=== PATIENT | male | born 1970 | race Caucasian/White ===

== ENCOUNTER 2017-09-13 14:56 | Emergency (ER) | payer BC, OTHER ==
[2017-09-13] MEDS ORDERED: LISINOPRIL 10 MG TABLET PO ONE (15:39)
--- NOTE | 2017-09-13 15:48 | ER Document Report ---
HPI - HPI Patient complains to provider of: Right knee pain Onset: Last week Onset/Duration: Persistent Quality of pain: Achy Pain Level: 3 Context: Patient states that he woke up 1 week ago with right knee pain. Patient states pain is persisted and is affecting his ability to go up and down his staircase at home. Patient denies any fever. Patient states that he does do a lot of driving and that this aggravates his knee discomfort. Patient additionally reports that he had a change of insurance and that his primary doctor left the area and so he has not been on his blood pressure medication due to this. Patient states that he typically takes lisinopril 20, atorvastatin 40 and daily aspirin. Patient denies any history of any renal function abnormalities. Associated Symptoms: Other - Right knee pain. denies: Chest pain, Productive cough, Fever, Headache Exacerbated by: Movement, Walking Relieved by: Denies Similar symptoms previously: No Recently seen / treated by doctor: No - ROS ROS below otherwise negative: Yes Systems Reviewed and Negative: Yes All other systems reviewed and negative - CONSTITUTIONAL Constitutional: DENIES: Fever, Chills - NEURO Neurology: DENIES: Headache - CARDIOVASCULAR Cardiovascular: DENIES: Chest pain - RESPIRATORY Respiratory: DENIES: Trouble Breathing, Coughing - GASTROINTESTINAL Gastrointestinal: DENIES: Nausea - MUSCULOSKELETAL Musculoskeletal: REPORTS: Extremity pain, Swelling. DENIES: Back Pain - DERM Skin Color: Normal Skin Problems: None Past Medical History - General Information source: Patient - Social History Smoking Status: Former Smoker Chew tobacco use (# tins/day): No Frequency of alcohol use: None Drug Abuse: None Occupation: Management Lives with: Family Family History: Reviewed & Not Pertinent Patient has suicidal ideation: No Patient has homicidal ideation: No - Past Medical History Cardiac Medical History: Reports: Hx Coronary Artery Disease, Hx Heart Attack - 08/2015, Hx Hypercholesterolemia, Hx Hypertension Renal/ Medical History: Denies: Hx Peritoneal Dialysis Past Surgical History: Reports: Hx Cardiac Surgery - triple bypass 08/02/15, Hx Coronary Artery Bypass Graft - Immunizations Hx Diphtheria, Pertussis, Tetanus Vaccination: No Vertical Provider Document - CONSTITUTIONAL Agree With Documented VS: Yes Exam Limitations: No Limitations General Appearance: WD/WN, No Apparent Distress - INFECTION CONTROL TRAVEL OUTSIDE OF THE [place] IN LAST 30 DAYS: No - HEENT HEENT: Atraumatic, Normocephalic - NECK Neck: Normal Inspection, Supple - RESPIRATORY Respiratory: Breath Sounds Normal, No Respiratory Distress, Chest Non-Tender O2 Sat by Pulse Oximetry: 97 - CARDIOVASCULAR Cardiovascular: Regular Rate, Regular Rhythm, No Murmur Pulses: Normal: Posterior tibial, Dorsalis pedis - BACK Back: Normal Inspection - MUSCULOSKELETAL/EXTREMETIES Musculoskeletal/Extremeties: MAEW, FROM, Tender - Generalized right knee joint tenderness, patellar tendon intact, no laxity with varus or valgus maneuvers. Normal skin color and temperature overlying joint. Patient with moderate effusion, Edema. negative: Eccymosis - NEURO Level of Consciousness: Awake, Alert, Appropriate Motor/Sensory: No Motor Deficit, No Sensory Deficit - DERM Integumentary: Warm, Dry, No Rash Course - Re-evaluation Re-evalutation: 09/13/17 15:44 The patient has been informed that they have hypertension based on a blood pressure reading in the emergency department. I recommend that patient call the primary care provider listed on their discharge instructions or a physician of their choice by this week to arrange follow-up for further evaluation of hypertension. Controlled substance database reviewed - Vital Signs Vital signs: Temp Pulse Resp BP Pulse Ox 98.1 F 104 H 20 183/115 H 97 09/13/17 15:07 09/13/17 15:07 09/13/17 15:07 09/13/17 15:07 09/13/17 15:07 - Diagnostic Test Radiology reviewed: Reports reviewed Procedures - Immobilization Right Knee Pre-Proc Neuro Vasc Exam: Normal Immobilizer type: Ervin wrap Performed by: PCT Post-Proc Neuro Vasc Exam: Normal Alignment checked and good: Yes Discharge - Discharge Clinical Impression: Hx of essential hypertension Knee pain Qualifiers: Chronicity: acute Laterality: right Qualified Code(s): M25.561 - Pain in right knee Joint effusion of knee Qualifiers: Laterality: right Qualified Code(s): M25.461 - Effusion, right knee Condition: Stable Disposition: HOME, SELF-CARE Instructions: Use of Crutches ([facility]), Knee Effusion ([facility]), Oral Narcotic Medication ([facility]) Additional Instructions: Return immediately for any new or worsening symptoms Followup with your primary care provider, call tomorrow to make a followup appointment Follow-up with orthopedic doctor for further evaluation, call tomorrow for an appointment Prescriptions: Capsaicin 1 applic TP TID PRN #60 cream..g. PRN Reason: Hydrocodone/Acetaminophen [[place] 5-325 Tablet] 1 each PO Q6 PRN #15 tablet PRN Reason: Lisinopril [Prinivil] 20 mg PO DAILY #30 tablet Forms: Elevated Blood Pressure, Return to Work Referrals: [facility] ([facility] [Provider Group] - Follow up tomorrow
--- NOTE | 2017-09-13 17:08 | RADIOLOGY REPORT (SQ) ---
EXAM DESCRIPTION: KNEE RIGHT 4 VIEWS COMPLETED DATE/TIME: 09/13/2017 4:56 pm REASON FOR STUDY: pain, swelling COMPARISON: None. NUMBER OF VIEWS: Four views. TECHNIQUE: AP, lateral, and both oblique radiographic images acquired of the right knee. LIMITATIONS: None. FINDINGS: MINERALIZATION: Normal. BONES: No acute fracture or dislocation. No worrisome bone lesions. No significant osteophytes. JOINT: Suprapatellar effusion. No chondrocalcinosis. OTHER: No other significant finding. IMPRESSION: JOINT EFFUSION. NO SIGNIFICANT BONY FINDINGS. TECHNICAL DOCUMENTATION: JOB ID: [id number] [employer]- All Rights Reserved
[2017-09-13 18:05] VITALS: BP 183/105
== END 2017-09-13 17:52 | disposition home or self-care (01) ==
LOC: ER 14:56
DX: M25.561 Pain in right knee (principal); M25.461 Effusion, right knee; I10 Essential (primary) hypertension; T46.4X6A Underdosing of angiotensin-converting-enzyme inhibitors, initial encounter; Z91.128 Patient's intentional underdosing of medication regimen for other reason; Z91.14 Patient's other noncompliance with medication regimen; I25.10 Atherosclerotic heart disease of native coronary artery without angina pectoris; I25.2 Old myocardial infarction; E78.00 Pure hypercholesterolemia, unspecified; Z79.82 Long term (current) use of aspirin; Z79.899 Other long term (current) drug therapy; Z87.891 Personal history of nicotine dependence; Z95.1 Presence of aortocoronary bypass graft
CPT/HCPCS: 99283

== ENCOUNTER 2018-01-29 10:29 | Emergency (ER) | payer BC, OTHER ==
[2018-01-29] MEDS ORDERED: METOPROLOL SUCCINATE 50 MG TAB.SR.24H PO ONE (10:50)
--- NOTE | 2018-01-29 10:51 | ER Document Report ---
ED Medical Screen (RME) - General Chief Complaint: Blood Pressure Problem Stated Complaint: BLOOD PRESSURE ISSUES Time Seen by Provider: 01/29/18 10:49 Notes: 47 years old male with a history of coronary artery bypass surgery, ran out of his medications since last August, not been taking his blood pressure medicine. Today he went to the communications designer. It was found that his systolic blood pressure was 200 and diastole was 130. Therefore he was referred to the ED. He has been having on and off shortness of breath for the last several days to week. Denies any chest pain. Denies any left arm numbness tingling sensation nausea vomiting palpitation or diaphoresis. I have greeted and performed a rapid initial assessment of this patient. A comprehensive ED assessment and evaluation of the patient, analysis of test results and completion of the medical decision making process will be conducted by additional ED providers. PHYSICAL EXAMINATION: GENERAL: Well-appearing, well-nourished and in no acute distress. HEAD: Atraumatic, normocephalic. EYES: Pupils equal round extraocular movements intact, conjunctiva are normal. ENT: Nares patent NECK: Normal range of motion LUNGS: No respiratory distress Musculoskeletal: Normal range of motion NEUROLOGICAL: Normal speech, normal gait. PSYCH: Normal mood, normal affect. SKIN: Warm, Dry, normal turgor, no rashes or lesions noted. TRAVEL OUTSIDE OF THE [place] IN LAST 30 DAYS: No - Related Data Allergies/Adverse Reactions: No Known Allergies Allergy (Verified 01/29/18 10:33) Past Medical History - Social History Chew tobacco use (# tins/day): No Frequency of alcohol use: Occasional Drug Abuse: None - Past Medical History Cardiac Medical History: Reports: Hx Coronary Artery Disease, Hx Heart Attack - 08/2015, Hx Hypercholesterolemia, Hx Hypertension Endocrine Medical History: Reports: Hx Diabetes Mellitus Type 2 Renal/ Medical History: Denies: Hx Peritoneal Dialysis Past Surgical History: Reports: Hx Cardiac Surgery - triple bypass 08/02/15, Hx Coronary Artery Bypass Graft - Immunizations Hx Diphtheria, Pertussis, Tetanus Vaccination: No Physical Exam - Vital signs Vitals: Temp Pulse Resp BP Pulse Ox 98.0 F 102 H 20 170/131 H 96 01/29/18 10:35 01/29/18 10:35 01/29/18 10:35 01/29/18 10:35 01/29/18 10:35 Course - Vital Signs Vital signs: Temp Pulse Resp BP Pulse Ox 98.0 F 102 H 18 170/131 H 96 01/29/18 10:35 01/29/18 10:35 01/29/18 10:41 01/29/18 10:35 01/29/18 10:35
[2018-01-29 11:57] LABS: ABSOLUTE BASOPHILS # (AUTO) 0.1 10^3/uL (0.0-0.2); ABSOLUTE EOSINOPHILS # (AUTO) 0.2 10^3/uL (0.0-0.6); ABSOLUTE LYMPHOCYTES (AUTO) 2.4 10^3/uL (0.5-4.7); ABSOLUTE MONOCYTES (AUTO) 0.6 10^3/uL (0.1-1.4); ABSOLUTE NEUT (AUTO) 4.8 10^3/uL (1.7-8.2); BASOPHILS % (AUTO) 0.7 % (0-2); EOSINOPHILS % (AUTO) 2.4 % (0-6); HEMATOCRIT 44.3 % (37.9-51.0); HEMOGLOBIN 14.9 g/dL (13.5-17.0); LYMPHOCYTES % (AUTO) 29.9 % (13-45); MEAN CORPUSCULAR HEMOGLOBIN 30.1 pg (27.0-33.4); MEAN CORPUSCULAR HGB CONC 33.6 g/dL (32.0-36.0); MEAN CORPUSCULAR VOLUME 89 fl (80-97); PLATELET COUNT 191 10^3/uL (150-450); RED BLOOD COUNT 4.95 10^6/uL (4.35-5.55); TOTAL CELLS COUNTED % (AUTO) 100 %
--- NOTE | 2018-01-29 12:06 | RADIOLOGY REPORT (SQ) ---
EXAM DESCRIPTION: CHEST SINGLE VIEW COMPLETED DATE/TIME: 01/29/2018 11:32 am REASON FOR STUDY: Shortness of breath COMPARISON: Chest film 11/17/2013, 08/18/2015 CT angio chest 07/13/2015 EXAM PARAMETERS: NUMBER OF VIEWS: One view. TECHNIQUE: Single frontal radiographic view of the chest acquired. RADIATION DOSE: NA LIMITATIONS: None. FINDINGS: LUNGS AND PLEURA: No opacities, masses or pneumothorax. No pleural effusion. MEDIASTINUM AND HILAR STRUCTURES: No masses. Contour normal. HEART AND VASCULAR STRUCTURES: Cardiac silhouette size normal. Post sternotomy and CABG. BONES: No acute findings. HARDWARE: None in the chest. OTHER: No other significant finding. IMPRESSION: Old sternotomy for CABG. No acute findings TECHNICAL DOCUMENTATION: JOB ID: [id number] [email or web address] All Rights Reserved Reading location - IP/workstation name: [email or web address]
[2018-01-29 12:11] LABS: ALANINE AMINOTRANSFERASE 139 U/L (21-72); ALBUMIN 4.5 g/dL (3.5-5.0); ALKALINE PHOSPHATASE 66 U/L (38-126); ANION GAP 15 (5-19); ASPARTATE AMINO TRANSFERASE 89 U/L (17-59); BILIRUBIN,DIRECT 0.3 mg/dL (0.0-0.4); BILIRUBIN,TOTAL 0.5 mg/dL (0.2-1.3); BLOOD UREA NITROGEN 15 mg/dL (7-20); CALCIUM 9.7 mg/dL (8.4-10.2); CARBON DIOXIDE 29 mmol/L (22-30); CHLORIDE 102 mmol/L (98-107); GLUCOSE 92 mg/dL (75-110); POTASSIUM 3.7 mmol/L (3.6-5.0); SODIUM 146.3 mmol/L (137-145); TOTAL PROTEIN 7.6 g/dL (6.3-8.2)
[2018-01-29 12:20] VITALS: BP 175/90
--- NOTE | 2018-01-29 12:47 | ER Document Report ---
ED Blood Pressure Problem - General Chief Complaint: Blood Pressure Problem Stated Complaint: BLOOD PRESSURE ISSUES Time Seen by Provider: 01/29/18 10:49 Notes: This is a 47-year-old male. Significant cardiac history consisting of coronary artery bypass graft approximately 3 years ago. Status post OK. Has uncontrolled hypertension. Has not been taking his medications because he ran out. Went to see the graphic design manager today and his blood pressure was 220/120. [employer] Technician said he needed to come to the emergency department to get his blood pressure down. Patient denied any complaints at this time. Set only problem is that he has had recently is that he has not been able to get a prescription for a CPAP machine. Was told he had sleep apnea several years ago and the sleep apnea seems to be getting worse. says that he snores really loud and sometimes seems like he is stopping breathing. TRAVEL OUTSIDE OF THE [place] IN LAST 30 DAYS: No - HPI Patient complains to provider of: High blood pressure Onset/Duration: Gradual Quality of pain: No pain - Related Data Allergies/Adverse Reactions: No Known Allergies Allergy (Verified 01/29/18 10:33) Past Medical History - General Information source: Patient - Social History Smoking Status: Former Smoker Chew tobacco use (# tins/day): No Frequency of alcohol use: Occasional Drug Abuse: None Lives with: Spouse/Significant other Family History: Reviewed & Not Pertinent Patient has suicidal ideation: No Patient has homicidal ideation: No - Past Medical History Cardiac Medical History: Reports: Hx Coronary Artery Disease, Hx Heart Attack - 08/2015, Hx Hypercholesterolemia, Hx Hypertension Endocrine Medical History: Reports: Hx Diabetes Mellitus Type 2 Renal/ Medical History: Denies: Hx Peritoneal Dialysis Past Surgical History: Reports: Hx Cardiac Surgery - triple bypass 08/02/15, Hx Coronary Artery Bypass Graft - Immunizations Hx Diphtheria, Pertussis, Tetanus Vaccination: No Review of Systems - Review of Systems Constitutional: No symptoms reported EENT: No symptoms reported Cardiovascular: No symptoms reported Respiratory: No symptoms reported Gastrointestinal: No symptoms reported Genitourinary: No symptoms reported Male Genitourinary: No symptoms reported Musculoskeletal: No symptoms reported Skin: No symptoms reported Hematologic/Lymphatic: No symptoms reported Neurological/Psychological: No symptoms reported Physical Exam - Vital signs Vitals: Temp Pulse Resp BP Pulse Ox 98.0 F 102 H 20 170/131 H 96 01/29/18 10:35 01/29/18 10:35 01/29/18 10:35 01/29/18 10:35 01/29/18 10:35 Interpretation: Normal - General General appearance: Appears well, Alert - HEENT Head: Normocephalic, Atraumatic Eyes: Normal Pupils: PERRL - Respiratory Respiratory status: No respiratory distress Chest status: Nontender Breath sounds: Normal Chest palpation: Normal - Cardiovascular Rhythm: Regular Heart sounds: Normal auscultation Murmur: No - Abdominal Inspection: Normal Distension: No distension Bowel sounds: Normal Tenderness: Nontender Organomegaly: No organomegaly - Back Back: Normal, Nontender - Extremities General upper extremity: Normal inspection, Nontender, Normal color, Normal ROM , Normal temperature General lower extremity: Normal inspection, Nontender, Normal color, Normal ROM , Normal temperature, Normal weight bearing. No: Dickson's sign - Neurological Neuro grossly intact: Yes Cognition: Normal Orientation: AAOx4 [place] Coma Scale Eye Opening: Spontaneous [place] Coma Scale Verbal: Oriented [place] Coma Scale Motor: Obeys Commands [place] Coma Scale Total: 15 Speech: Normal Motor strength normal: LUE, RUE, LLE, RLE Sensory: Normal - Psychological Associated symptoms: Normal affect, Normal mood - Skin Skin Temperature: Warm Skin Moisture: Dry Skin Color: Normal Course - Re-evaluation Re-evalutation: 01/29/18 12:48 Patient's labs are unremarkable. Denies any chest pain. Denies any significant shortness of breath. Chest x-ray unremarkable. States that his blood pressures normally 200/100. Patient has all of the scripts that he needs. He was just prescribed multiple medications by the graphic design manager but sent here to get his blood pressure down. Patient feels fine at this time. Patient did request prescription for CPAP machine. I have done this. I advised that his insurance may or may not cover this as he may need to be seen and retested. Patient understands that he would need to follow-up with nut process helper for any further forms that need to be filled out for durable medical equipment. 01/29/18 12:49 Laboratory 01/29/18 01/29/18 11:26 11:26 WBC 8.0 RBC 4.95 Hgb 14.9 Hct 44.3 MCV 89 MCH 30.1 MCHC 33.6 RDW 14.0 Plt Count 191 Seg Neutrophils % 60.0 Lymphocytes % 29.9 Monocytes % 7.0 Eosinophils % 2.4 Basophils % 0.7 Absolute Neutrophils 4.8 Absolute Lymphocytes 2.4 Absolute Monocytes 0.6 Absolute Eosinophils 0.2 Absolute Basophils 0.1 Sodium 146.3 H Potassium 3.7 Chloride 102 Carbon Dioxide 29 Anion Gap 15 BUN 15 Creatinine 1.14 Est GFR ( Amer) > 60 Est GFR (Non-Af Amer) > 60 Glucose 92 Calcium 9.7 Total Bilirubin 0.5 Direct Bilirubin 0.3 Neonat Total Bilirubin Not Reportable Neonat Direct Bilirubin Not Reportable Neonat Indirect Bili Not Reportable AST 89 H ALT 139 H Alkaline Phosphatase 66 Total Protein 7.6 Albumin 4.5 Chest X-Ray 01/29/18 10:49 IMPRESSION: Old sternotomy for CABG. No acute findings - Vital Signs Vital signs: Temp Pulse Resp BP Pulse Ox 98.0 F 102 H 23 H 175/90 H 97 01/29/18 10:35 01/29/18 10:35 01/29/18 12:01 01/29/18 12:01 01/29/18 12:01 - Laboratory Result Diagrams: 01/29/18 11:26 01/29/18 11:26 Laboratory results interpreted by me: 01/29/18 11:26 Sodium 146.3 H AST 89 H ALT 139 H - EKG Interpretation by In EKG shows normal: Sinus rhythm, Intervals, QRS Complexes, ST-T Waves [place]/QRS: Left axis deviation Voltage: Consistant with LVH Critical Care Note - Critical Care Note Total time excluding time spent on procedures (mins): 30 Comments: Extreme hypertension, medication management for extreme hypertension Discharge - Discharge Clinical Impression: Hypertension Qualifiers: Hypertension type: unspecified Qualified Code(s): I10 - Essential (primary) hypertension Condition: Good Disposition: HOME, SELF-CARE Instructions: High Blood Pressure, Requiring Treatment ([facility]) Additional Instructions: Restart all the medications with the graphic design manager has prescribed. You may begin using the positive pressure breathing apparatus at night to help with her sleep. Please follow-up with the nut process helper and graphic design manager as instructed. Return immediately for any worsening symptoms or concerns. Prescriptions: Apap Machine 1 each NASL QHS PRN #1 PRN Reason: Referrals: NICK GARDNER MD [ACTIVE STAFF] - Follow up in 1 week SOFIYA DANIELS MD [[facility]] - Follow up in 3-5 days
--- NOTE | 2018-01-29 18:01 | EKG REPORT ---
SEVERITY:- ABNORMAL ECG - SINUS RHYTHM LVH WITH SECONDARY REPOLARIZATION ABNORMALITY PROLONGED QT INTERVAL : Confirmed by: Beena Escalera 29-Jan-2018 18:00:44
== END 2018-01-29 13:00 | disposition home or self-care (01) ==
LOC: ER 10:29
DX: I10 Essential (primary) hypertension (principal); T50.906A Underdosing of unspecified drugs, medicaments and biological substances, initial encounter; Z91.128 Patient's intentional underdosing of medication regimen for other reason; Z91.14 Patient's other noncompliance with medication regimen; G47.30 Sleep apnea, unspecified; I25.2 Old myocardial infarction; I25.10 Atherosclerotic heart disease of native coronary artery without angina pectoris; E11.9 Type 2 diabetes mellitus without complications; Z87.891 Personal history of nicotine dependence; Z95.1 Presence of aortocoronary bypass graft
CPT/HCPCS: 36415; 71045; 80053; 85025; 93005; 93010; 99285

== ENCOUNTER 2018-11-03 15:21 | Emergency (ER) | payer BC ==
--- NOTE | 2018-11-03 15:38 | ER Document Report ---
HPI - HPI Time Seen by Provider: 11/03/18 15:34 Pain Level: 4 Notes: Patient is a 48-year-old male who presents the emergency department complaining of left ankle pain status post injury prior to arrival. Patient states that he was going up the stairs when he twisted his ankle. Patient states that he has had pain since then but does not radiate. Pain is described as a sharp pain. He has no other concerns or complaints. Denies drug allergies. Denies any headache, fever, head injury, neck pain, URI, sore throat, chest pain, palpitations, syncope, cough, shortness of breath, wheeze, dyspnea, abdominal pain, nausea/vomiting/diarrhea, urinary retention, dysuria, hematuria, back pain, loss of control of bowel or bladder, numbness/tingling, saddle anesthesia, muscle paralysis/weakness, or rash. Pt did not take his BP meds today. - ROS Systems Reviewed and Negative: Yes All other systems reviewed and negative Past Medical History - Social History Smoking Status: Former Smoker Family History: Reviewed & Not Pertinent - Past Medical History Cardiac Medical History: Reports: Hx Coronary Artery Disease, Hx Heart Attack - 08/2015, Hx Hypercholesterolemia, Hx Hypertension Endocrine Medical History: Reports: Hx Diabetes Mellitus Type 2 Renal/ Medical History: Denies: Hx Peritoneal Dialysis Past Surgical History: Reports: Hx Cardiac Surgery - triple bypass 08/02/15, Hx Coronary Artery Bypass Graft - Immunizations Hx Diphtheria, Pertussis, Tetanus Vaccination: No Vertical Provider Document - CONSTITUTIONAL Agree With Documented VS: Yes Notes: PHYSICAL EXAMINATION: GENERAL: Well-appearing, well-nourished and in no acute distress. LUNGS: Breath sounds clear to auscultation bilaterally and equal. No wheezes rales or rhonchi. HEART: Regular rate and rhythm without murmurs, rubs, gallops. Musculoskeletal: Lt foot/ankle: + swelling and tenderness to the lateral malleolus. No obvious deformity. LROM to passive/active dorsiflexion. Strength 5+/5. N/V intact distal. No bony tenderness of the foot. Achilles intact. Extremities: No cyanosis, clubbing, or edema b/l. Peripheral pulses 2+. Capillary refill less than 3 seconds. NEUROLOGICAL: Normal speech, limping gait. Normal sensory, motor exams PSYCH: Normal mood, normal affect. SKIN: Warm, Dry, normal turgor, no rashes or lesions noted. - INFECTION CONTROL TRAVEL OUTSIDE OF THE [place] IN LAST 30 DAYS: No Course - Re-evaluation Re-evalutation: 11/03/18 15:51 Pharmacy called by family for pt's at-home BP meds. Lisinopril, lasix, and coreg ordered. 11/03/18 16:05 Patient is an afebrile, well-hydrated, 48-year-old male who presents to the ED with left ankle pain which I suspect to be a sprain versus strain. Vitals are acceptable without any significant tachycardia, tachypnea, or hypoxia. PE is otherwise unremarkable for any neurovascular compromise, obvious tendon/ligament rupture, obvious fracture/dislocation, septic joint. X-ray was unremarkable for any acute pathology. Ankle stirrup and crutches were provided today. Pt declined pain medicine. Patient is nontoxic-appearing. Patient is able to ambulate and weight-bear although he is limping. No other labs or imaging warranted at this time based on H&P. Conservative measures otherwise for symptoms. Recheck with your PCM in 3-5 days. Consider consult orthopedics. Return to the ED with any worsening/concerning symptoms otherwise as reviewed in discharge. Patient is in agreement. - Vital Signs Vital signs: Temp Pulse Resp BP Pulse Ox 97.7 F 110 H 18 203/128 H 94 11/03/18 15:27 11/03/18 15:27 11/03/18 15:27 11/03/18 15:27 11/03/18 15:27 Discharge - Discharge Clinical Impression: Left ankle pain Qualifiers: Chronicity: acute Qualified Code(s): M25.572 - Pain in left ankle and joints of left foot Condition: Stable Disposition: HOME, SELF-CARE Additional Instructions: Rest, Ice, Compression, Elevation Use splint/crutches as directed Tylenol/ibuprofen as needed Light stretches daily Strength exercises as able Moist heat and massage may help F/u with your PCP in 3-5 days for a recheck Consider consult(s) with Orthopedics/physical therapy for ongoing/worsening symptoms Return to the ED with any worsening symptoms and/or development of fever, headache, chest pain, palpitations, syncope, shortness of breath, trouble breathing, abdominal pain, n/v/d, muscle weakness/paralysis, numbness/tingling, swelling, redness, or other worsening symptoms that are concerning to you. Forms: Elevated Blood Pressure Referrals: [facility] [Provider Group] - Follow up as needed
[2018-11-03] MEDS ORDERED: CARVEDILOL 3.125 MG TABLET PO ONE (15:50)
[2018-11-03] MEDS ORDERED: LISINOPRIL 10 MG TABLET PO ONE (15:50)
[2018-11-03] MEDS ORDERED: FUROSEMIDE 20 MG TABLET PO ONE (15:50)
--- NOTE | 2018-11-03 16:00 | RADIOLOGY REPORT (SQ) ---
EXAM DESCRIPTION: ANKLE LEFT COMPLETE COMPLETED DATE/TIME: 11/03/2018 3:42 pm REASON FOR STUDY: Twisted ankle going up steps/ fell. Swollen. Pain+ COMPARISON: None. NUMBER OF VIEWS: Three views. TECHNIQUE: AP, lateral, and oblique radiographic images acquired of the left ankle. LIMITATIONS: None. FINDINGS: MINERALIZATION: Normal. BONES: No acute fracture or dislocation. No worrisome bone lesions. JOINTS: No effusions. SOFT TISSUES: Lateral soft tissue swelling. OTHER: No other significant finding. IMPRESSION: Soft tissue swelling. No fracture. TECHNICAL DOCUMENTATION: JOB ID: [id number] [email or web address]- All Rights Reserved Reading location - IP/workstation name: [email or web address]
[2018-11-03 16:13] VITALS: BP 194/111
== END 2018-11-03 16:12 | disposition home or self-care (01) ==
LOC: ER 15:21
DX: M25.572 Pain in left ankle and joints of left foot (principal); X50.1XXA Overexertion from prolonged static or awkward postures, initial encounter; Z87.891 Personal history of nicotine dependence; I25.10 Atherosclerotic heart disease of native coronary artery without angina pectoris; I10 Essential (primary) hypertension; E11.9 Type 2 diabetes mellitus without complications
CPT/HCPCS: 99283; 73610; L1902

== ENCOUNTER 2019-08-23 15:38 | Emergency (ER) | payer BC ==
[2019-08-23 15:48] VITALS: BP 208/128
[2019-08-23] MEDS ORDERED: KETOROLAC TROMETHAMINE INJ/PF 30 MG/1 ML SDV IM ONE (16:18)
--- NOTE | 2019-08-23 16:26 | ER Document Report ---
HPI - HPI Time Seen by Provider: 08/23/19 16:08 Pain Level: 4 Context: 48-year-old male with history of coronary artery disease and ACS presents to the emergency department with left knee pain x1 month. Patient states that he is having difficulty ambulating, has pain in the medial aspect of his knee, and the pain has gotten worse prompting him to get seen. Patient is able to flex and extend his knee. Does notice some mild swelling. No fevers or chills. No redn ess. No other complaints - REPRODUCTIVE Reproductive: DENIES: : - MUSCULOSKELETAL Musculoskeletal: REPORTS: Extremity pain - Left Knee Past Medical History - Social History Smoking Status: Former Smoker Chew tobacco use (# tins/day): No Frequency of alcohol use: Social Drug Abuse: None Family History: Reviewed & Not Pertinent Patient has suicidal ideation: No Patient has homicidal ideation: No - Past Medical History Cardiac Medical History: Reports: Hx Coronary Artery Disease, Hx Heart Attack - 08/2015, Hx Hypercholesterolemia, Hx Hypertension Endocrine Medical History: Reports: Hx Diabetes Mellitus Type 2 Renal/ Medical History: Denies: Hx Peritoneal Dialysis Past Surgical History: Reports: Hx Cardiac Surgery - triple bypass 08/02/15, Hx Coronary Artery Bypass Graft - Immunizations Hx Diphtheria, Pertussis, Tetanus Vaccination: No Vertical Provider Document - CONSTITUTIONAL Notes: PHYSICAL EXAMINATION: Reviewed vital signs and charting by RN GENERAL: Alert, interacts well. No acute distress. HEAD: Normocephalic, atraumatic. EYES: Pupils equal and round. Extraocular movements intact. ENT: Oral mucosa moist, tongue midline. NECK: Full range of motion. Trachea midline. EXTREMITIES: Moves all 4 extremities spontaneously. Very mild edema of the medial aspect of the left knee, tenderness to palpation over the medial meniscus, positive Angela's test, pain with valgus stress PSYCH: Normal affect, normal mood. SKIN: Warm, dry, normal turgor. No rashes or lesions noted. - INFECTION CONTROL TRAVEL OUTSIDE OF THE [place] IN LAST 30 DAYS: No Course - Re-evaluation Re-evalutation: 08/23/19 20:07 No evidence of a septic joint as patient is afebrile with the knee is not hot and red, and he is able to move it. I do suspect possibly a medial meniscus injury based on physical exam. I have given patient referral to orthopedics. I have given him an Ervin wrap. He is stable for discharge. - Vital Signs Vital signs: Temp Pulse Resp BP Pulse Ox 98.0 F 99 18 208/128 H 96 08/23/19 16:06 08/23/19 15:45 08/23/19 16:06 08/23/19 15:45 08/23/19 16:06 Discharge - Discharge Clinical Impression: Knee pain Qualifiers: Chronicity: acute Laterality: left Qualified Code(s): M25.562 - Pain in left knee Condition: Good Disposition: HOME, SELF-CARE Additional Instructions: You were seen in the emergency department for knee pain for the past month. It is unclear what caused to the injury but the pain seems to be over your medial meniscus. I have given you referral for orthopedics so please call them at your convenience for definitive evaluation. Please continue to take ibuprofen 600 mg every 6 hours with food and/or milk, ice it for 20 minutes at a time every couple of hours if there is swelling, use the Ervin wrap for compression, and elevate it when you are relaxing at the house. Please return to the emergency department if you lose circulation in your leg which was presented as a cold dusky foot or lower leg, you develop acute weakness, you develop pain so severe you cannot tolerate it, or you have any other concerning symptoms.
== END 2019-08-23 16:40 | disposition home or self-care (01) ==
LOC: ER 15:38
DX: M25.562 Pain in left knee (principal); I25.10 Atherosclerotic heart disease of native coronary artery without angina pectoris; Z87.891 Personal history of nicotine dependence; I25.2 Old myocardial infarction; I10 Essential (primary) hypertension; E11.9 Type 2 diabetes mellitus without complications
CPT/HCPCS: 99283; 96372; J1885

== ENCOUNTER 2019-10-29 00:21 | Emergency (ER) | payer BC ==
[2019-10-29 01:45] LABS: ABSOLUTE BASOPHILS # (AUTO) 0.1 10^3/uL (0.0-0.2); ABSOLUTE EOSINOPHILS # (AUTO) 0.3 10^3/uL (0.0-0.6); ABSOLUTE LYMPHOCYTES (AUTO) 2.4 10^3/uL (0.5-4.7); ABSOLUTE MONOCYTES (AUTO) 0.7 10^3/uL (0.1-1.4); ABSOLUTE NEUT (AUTO) 6.2 10^3/uL (1.7-8.2); BASOPHILS % (AUTO) 0.7 % (0-2); EOSINOPHILS % (AUTO) 2.7 % (0-6); HEMATOCRIT 38.6 % (37.9-51.0); HEMOGLOBIN 13.5 g/dL (13.5-17.0); LYMPHOCYTES % (AUTO) 24.7 % (13-45); MEAN CORPUSCULAR HEMOGLOBIN 31.1 pg (27.0-33.4); MEAN CORPUSCULAR HGB CONC 35.1 g/dL (32.0-36.0); MEAN CORPUSCULAR VOLUME 89 fl (80-97); MONOCYTES % (AUTO) 7.4 % (3-13); PLATELET COUNT 185 10^3/uL (150-450); RED BLOOD COUNT 4.35 10^6/uL (4.35-5.55); RED CELL DISTRIBUTION WIDTH 13.7 % (11.5-14.0); SEGMENTED NEUTROPHILS % (AUTO) 64.5 % (42-78); TOTAL CELLS COUNTED % (AUTO) 100 %; WHITE BLOOD COUNT 9.6 10^3/uL (4.0-10.5)
[2019-10-29 01:52] LABS: ALKALINE PHOSPHATASE 67 U/L (38-126); ANION GAP 9 (5-19); ASPARTATE AMINO TRANSFERASE 71 U/L (17-59); BILIRUBIN,DIRECT 0.3 mg/dL (0.0-0.4); BILIRUBIN,TOTAL 0.5 mg/dL (0.2-1.3); BLOOD UREA NITROGEN 15 mg/dL (7-20); CALCIUM 9.1 mg/dL (8.4-10.2); CARBON DIOXIDE 29 mmol/L (22-30); CHLORIDE 104 mmol/L (98-107); CREATINE KINASE 181 U/L (55-170); GLUCOSE 107 mg/dL (75-110); POTASSIUM 3.3 mmol/L (3.6-5.0); TOTAL PROTEIN 7.2 g/dL (6.3-8.2)
[2019-10-29 01:58] LABS: CREATINE KINASE MB 1.23 ng/mL (<4.55)
[2019-10-29 02:02] LABS: TROPONIN I 0.069 ng/mL
--- NOTE | 2019-10-29 02:59 | RADIOLOGY REPORT (SQ) ---
EXAM DESCRIPTION: XR CHEST 2 VIEWS COMPLETED DATE/TME: 10/29/2019 00:00 CLINICAL HISTORY: 49 years, Male, chest pain COMPARISON: 01/29/2018 NUMBER OF VIEWS: Two TECHNIQUE: Two views of the chest LIMITATIONS: None. FINDINGS: The lungs are clear. The heart is normal in size with changes of median sternotomy. There is no pneumothorax or pleural effusion. There is no acute fracture. IMPRESSION: No acute cardiopulmonary abnormality copyright 2010 [facility]- All Rights Reserved
[2019-10-29] MEDS ORDERED: METHYLPREDNISOLONE INJ 125 MG/2 ML SDV IV ONE (04:41)
[2019-10-29] MEDS ORDERED: IPRATROPIUM/ALBUTEROL 0.5-2.5 MG/3 ML AMPUL NEB ONE (04:41)
--- NOTE | 2019-10-29 04:44 | ER Document Report ---
ED Cardiac - General Chief Complaint: Shortness Of Breath Stated Complaint: CHEST PAIN/SHORTNESS OF BREATH Time Seen by Provider: 10/29/19 04:27 Primary Care Provider: [facility] [Provider Group] - Follow up as needed DAR JACKSON MD [ACTIVE STAFF] - Follow up as needed NIHARIKA BRENNAN MD [ACTIVE STAFF] - Follow up as needed Mode of Arrival: Ambulatory Information source: Patient Notes: Patient presents complaining of cough for the past week. Patient states he felt as though the cold symptoms were getting better and then started to worsen today. Patient does report exertional dyspnea. Patient states he did recently drive to and from [place]. Patient denies any fever nausea or vomiting. Patient states that he has had some chest discomfort since about 6 PM that he attributes chest wall pain due to coughing. Patient denies any lightheadedness or dizziness. TRAVEL OUTSIDE OF THE [place] IN LAST 30 DAYS: No - HPI Patient complains to provider of: Chest pain, Shortness of breath Quality of pain: Achy Pain level currently: 1 Associated symptoms: Shortness of breath. denies: Abdominal pain, Back pain, Fever/chills, Lightheaded, Nausea/vomiting Exacerbated by: Coughing Relieved by: Other - Not coughing - Related Data Allergies/Adverse Reactions: No Known Allergies Allergy (Verified 08/23/19 16:05) Home Medications: Lisinopril. Carvedilol. Lasix. Mucinex DM Past Medical History - General Information source: Patient - Social History Smoking Status: Former Smoker Chew tobacco use (# tins/day): No Frequency of alcohol use: Occasional Drug Abuse: None Occupation: [employer] Lives with: Family Family History: Reviewed & Not Pertinent Patient has suicidal ideation: No Patient has homicidal ideation: No - Past Medical History Cardiac Medical History: Reports: Hx Coronary Artery Disease, Hx Heart Attack - 08/2015, Hx Hypercholesterolemia, Hx Hypertension, Other - Celiac artery dissection, splenic artery thrombus Renal/ Medical History: Denies: Hx Peritoneal Dialysis Past Surgical History: Reports: Hx Cardiac Surgery - triple bypass 08/02/15, Hx Coronary Artery Bypass Graft - Immunizations Hx Diphtheria, Pertussis, Tetanus Vaccination: No Review of Systems - Review of Systems Constitutional: Recent illness - Cold symptoms for the past week. denies: Fever EENT: Nose congestion Cardiovascular: Chest pain - Coughing Respiratory: Cough, Short of breath, Wheezing Gastrointestinal: No symptoms reported. denies: Vomiting Genitourinary: No symptoms reported Male Genitourinary: No symptoms reported Musculoskeletal: No symptoms reported Skin: No symptoms reported Hematologic/Lymphatic: No symptoms reported Physical Exam - Vital signs Vitals: Temp Pulse Resp BP Pulse Ox 98.1 F 98 18 175/113 H 97 10/29/19 00:38 10/29/19 00:38 10/29/19 00:38 10/29/19 00:38 10/29/19 00:38 - General General appearance: Appears well, Alert In distress: None - HEENT Head: Normocephalic, Atraumatic Eyes: Normal Conjunctiva: Normal Sinus: Normal Nasal: Clear rhinorrhea Mouth/Lips: Normal Pharynx: Normal Neck: Normal, Supple. No: Lymphadenopathy - Respiratory Respiratory status: No respiratory distress Chest status: Tender, Pain with cough Breath sounds: Nonproductive cough, Wheezing Chest palpation: Tender - Cardiovascular Rhythm: Regular Heart sounds: S1 appreciated, S2 appreciated Murmur: No - Abdominal Inspection: Obese Distension: No distension Bowel sounds: Normal Tenderness: Nontender - Back Back: Normal, Nontender. No: CVA tenderness - Extremities General upper extremity: Normal inspection, Normal strength General lower extremity: Normal inspection, Normal strength - Neurological Neuro grossly intact: Yes Cognition: Normal Khloe Coma Scale Eye Opening: Spontaneous Khloe Coma Scale Verbal: Oriented Shelby Coma Scale Motor: Obeys Commands Khloe Coma Scale Total: 15 - Psychological Associated symptoms: Normal affect, Normal mood - Skin Skin Temperature: Warm Skin Moisture: Dry Skin Color: Normal Course - Re-evaluation Re-evalutation: 10/29/19 06:[address] Manzano regarding patient presentation and diagnostic evaluation. EKG reviewed and compared to prior as well as laboratory test performed during previous ER visits. Patient has had historically elevated troponin. Patient reported a known history of hypertension and DVT and PR with history of triple bypass in the past. 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 Discussed patient's vital signs and continued dyspnea. Does recommend CTA at this time given additional history of previous dissection and thrombus in addition to patient's continued dyspnea 10/29/19 08:[address] Jenkins regarding patient presentation and CT report findings. Does recommend covering with antibiotics such as doxycycline given concern about nodular lesion noted on CTA that is worrisome for possible atelectasis versus infectious versus inflammatory etiology. Patient otherwise nontoxic in appearance at this time. Vital signs stable. The patient has atypical chest pain as the patient's chest pain is not suggestive of pulmonary embolus, cardiac ischemia, aortic dissection, or other serious etiology. Given the extremely low risk of these diagnoses, evaluation for these possibilities does not appear to be indicated at this time. Patient has been instructed to return if the symptom s worsen or change in any way. 10/29/19 08:[address] report findings and importance of outpatient follow-up for repeat imaging. Discussed importance of compliance with taking his antih ypertensive medication as well. Patient advised of electrolyte abnormalities and mild increase in renal function test. Patient encouraged to see his primary doctor for repeat testing. Patient verbalized understanding and agrees with discharge plan of care. - Vital Signs Vital signs: Temp Pulse Resp BP Pulse Ox 97.9 F 98 13 144/92 H 100 10/29/19 05:02 10/29/19 00:38 10/29/19 05:02 10/29/19 05:02 10/29/19 05:02 - Laboratory Result Diagrams: 10/29/19 01:20 10/29/19 01:20 Laboratory results interpreted by me: 10/29/19 10/29/19 10/29/19 01:20 04:57 05:53 ABG pO2 73.9 L ABG HCO3 28.9 H ABG Total CO2 30.3 H Potassium 3.3 L Creatinine 1.33 H Est GFR (MDRD) Non-Af 57 L AST 71 H ALT 115 H Creatine Kinase 181 H NT-Pro-B Natriuret Pep 509 H 10/29/19 08:07 Labs- Entire Visit 10/29/19 10/29/19 10/29/19 01:20 01:20 01:20 WBC 9.6 RBC 4.35 Hgb 13.5 Hct 38.6 MCV 89 MCH 31.1 MCHC 35.1 RDW 13.7 Plt Count 185 Lymph % (Auto) 24.7 Bond % (Auto) 7.4 Eos % (Auto) 2.7 Baso % (Auto) 0.7 Absolute Neuts (auto) 6.2 Absolute Lymphs (auto) 2.4 Absolute Monos (auto) 0.7 Absolute Eos (auto) 0.3 Absolute Basos (auto) 0.1 Seg Neutrophils % 64.5 D-Dimer Carbonic Acid HCO3/H2CO3 Ratio ABG pH ABG pCO2 ABG pO2 ABG HCO3 ABG Total CO2 ABG O2 Saturation ABG Base Excess FiO2 Sodium 141.9 Potassium 3.3 L Chloride 104 Carbon Dioxide 29 Anion Gap 9 BUN 15 Creatinine 1.33 H Est GFR ( Amer) > 60 Est GFR (MDRD) Non-Af 57 L Glucose 107 Calcium 9.1 Total Bilirubin 0.5 Direct Bilirubin 0.3 Neonat Total Bilirubin Not Reportable Neonat Direct Bilirubin Not Reportable Neonat Indirect Bili Not Reportable AST 71 H ALT 115 H Alkaline Phosphatase 67 Creatine Kinase 181 H CK-MB (CK-2) 1.23 Troponin I 0.069 NT-Pro-B Natriuret Pep Total Protein 7.2 Albumin 4.0 10/29/19 10/29/19 10/29/19 01:20 04:57 05:53 WBC RBC Hgb Hct MCV MCH MCHC RDW Plt Count Lymph % (Auto) Bond % (Auto) Eos % (Auto) Baso % (Auto) Absolute Neuts (auto) Absolute Lymphs (auto) Absolute Monos (auto) Absolute Eos (auto) Absolute Basos (auto) Seg Neutrophils % D-Dimer 0.40 Carbonic Acid 1.30 HCO3/H2CO3 Ratio 22:1 ABG pH 7.45 ABG pCO2 43.1 ABG pO2 73.9 L ABG HCO3 28.9 H ABG Total CO2 30.3 H ABG O2 Saturation 95.4 ABG Base Excess 4.3 FiO2 ROOM AIR Sodium Potassium Chloride Carbon Dioxide Anion Gap BUN Creatinine Est GFR ( Amer) Est GFR (MDRD) Non-Af Glucose Calcium Total Bilirubin Direct Bilirubin Neonat Total Bilirubin Neonat Direct Bilirubin Neonat Indirect Bili AST ALT Alkaline Phosphatase Creatine Kinase CK-MB (CK-2) Troponin I 0.063 NT-Pro-B Natriuret Pep 509 H Total Protein Albumin - Diagnostic Test Radiology reviewed: Reports reviewed - EKG Interpretation by Me EKG shows normal: Sinus rhythm Rhythm: PVC's Voltage: Increased voltage When compared to previous EKG there are: No significant change Discharge - Discharge Clinical Impression: Hypokalemia, Bronchitis, Chest wall pain, Wheezing, Pulmonary nodule Condition: Stable Disposition: HOME, SELF-CARE Instructions: Chest Wall Pain ([facility]), Chest Pain of Unclear Cause ([facility]), Growth or Mass, Pending Workup ([facility]) Additional Instructions: Return immediately for any new or worsening symptoms Followup with your primary care provider, call tomorrow to make a followup appointment Follow-up with your padder cushion for recheck, call today to make a follow-up appointment Take your medications that you have at home as prescribed Your potassium was mildly low today. Increase foods rich in potassium. Your primary doctor can recheck your lab work for you on an outpatient basis. You will need a follow-up CT scan of the chest for further evaluation of pulmonary nodule in 3 months per radiology recommendation. Your primary doctor can order this test for you. BRONCHITIS: You have acute bronchitis. This disease is an infection or inflammation of the air passageways in your lungs. Symptoms usually include cough, low grade fever, shortness of breath, and wheezing. The cough usually persists for a couple of weeks. Most cases of bronchitis get better without antibiotics. We prescribe antibiotics when we believe bacteria are damaging your airways, or if there's high risk the bronchitis will worsen into pneumonia. Increase your fluid intake. A cool mist humidifier may make your lungs more comfortable. An expectorant (cough medicine that loosens phlegm) can help. If you smoke, STOP!!! Recovery from bronchitis can be somewhat slow, but you should see improvement within a day or two. Repeated episodes of bronchitis may result in lung damage -- for example, chronic bronchitis, recurrent pneumonias, or emphysema. Call the doctor if you develop increasing fever, shortness of breath, chest pain, bloody sputum, or otherwise worsen. If you have not improved at all after several days, contact the physician. BRONCHITIS WITH BRONCHOSPASM (WHEEZING): You have bronchitis with bronchospasm (wheezing). Sometimes people dev elop wheezing with a chest cold. This occurs either because of an underlying tendency toward asthma or because the virus itself irritates the bronchial tubes. This irritation causes cough, shortness of breath, and wheezing. Emergency treatment of bronchospasm may include adrenaline shots or b ronchodilator aerosol. You may feel lightheaded and have a rapid pulse for an hour or two. Rest and get plenty of fluids. At home, we'll treat you with a bronchodilator inhaler. Corticosteroids may be required for some patients. Until you recover, avoid chemical fumes, dusts, pollens, and exercising in very cold or dry air. If you smoke, stop now! Most cases of bronchitis get better without antibiotics. We prescribe antibiotics when we believe bacteria are damaging your airways, or if there's high risk the bronchitis will worsen into pneumonia. Increase your fluid intake. A cool mist humidifier may make your lungs more comfortable. An expectorant (cough medicine that loosens phlegm) can help. Repeated episodes of bronchitis and bronchospasm may result in lung damage -- for example, chronic bronchitis, recurrent pneumonias, or emphysema. If you develop a fever, increased wheezing, chest pain, or severe shortness of breath, you should contact the doctor immediately. INHALED BRONCHODILATORS: You have received a treatment of and/or prescription for an inhaled br onchodilator -- a medication which stimulates the airways in the lung to dilate. This improves the flow of air in asthma, bronchitis, and emphysema. These medicines have some similarity to adrenaline, and can cause similar side effects: shakiness, racing heart, and a sense of nervousness. These side effects decrease with time. Contact your doctor if these side effects are severe. Do not over-use the medicine. Too-frequent use of the inhaler may make it ineffective. Call your doctor if the inhaler is not controlling your symptoms at the prescribed doses. STEROID MEDICATION: You have been given an injection of or oral medicine of the cortisone/steroid class. This medication is used to control inflammation or allergy. Herrera t is usually only given for a short period of time, until the acute process subsides. There are usually no side effects from short-term use of cortisone-like medications. Some persons feel an increased sense of well-being and are not sleepy at bedtime. Long-term use of cortisone medications is best avoided, unless required for a severe condition. If your condition does not remit, or relapses after the course of corticosteroid medication, you should consult your physician. USE OF ACETAMINOPHEN (Tylenol): Acetaminophen may be taken for pain relief or fever control. It's much safer than aspirin, offering a wider range of "safe" dosages. It is safe during . Some brand names are Tylenol, Panadol, Datril, Anacin 3, Tempra, and Liquiprin. Acetaminophen can be repeated every four hours. The following are maximum recommended dosages: >89 pounds or adults 650 mg to 900 mg Acetaminophen can be repeated every four hours. Maximum dose not to exceed 4000 mg a day. FOLLOW-UP CARE: If you have been referred to a physician for follow-up care, call the physicians office for an appointment as you were instructed or within the next two days. If you experience worsening or a significant change in your symptoms, notify the physician immediately or return to the Emergency Department at any time for re-evaluation. Prescriptions: Prednisone [Deltasone 10 mg Tablet] 10 mg PO ASDIR #21 tablet Doxycycline Hyclate 100 mg PO BID #20 tablet. Inhaler,Assist Device,Accesory [Optichamber] 1 each MC Q4 PRN #1 each PRN Reason: Albuterol Sulfate [Proair Hfa Inhalation Aerosol 8.5 gm Mdi] 2 puff IH Q4 PRN #1 mdi PRN Reason: Benzonatate [Tessalon Perles 100 mg Capsule] 100 mg PO ASDIR PRN #30 capsule PRN Reason: Forms: Return to Work Referrals: DAR JACKSON MD [ACTIVE STAFF] - Follow up as needed NIHARIKA BRENNAN MD [ACTIVE STAFF] - Follow up as needed [facility] [Provider Group] - Follow up as needed
[2019-10-29] MEDS ORDERED: ASPIRIN 81 MG TABLET, CHEWABLE PO ONE (04:46)
[2019-10-29] MEDS ORDERED: POTASSIUM CHLORIDE 10 MEQ TABLET.ER PO ONE (05:08)
[2019-10-29] MEDS ORDERED: ALBUTEROL SULFATE 0.083% NEB 2.5 MG/3 ML AMPUL NEB ONE ×2 (05:35→07:41)
[2019-10-29 05:45] LABS: TROPONIN I 0.063 ng/mL
[2019-10-29 06:20] LABS: ARTERIAL BLOOD BASE EXCESS 4.3 mmol/L; ARTERIAL BLOOD HCO3 28.9 mmol/L (20-24); ARTERIAL BLOOD O2 SATURATION 95.4 % (94-98); ARTERIAL BLOOD PCO2 43.1 mmHg (35-45); ARTERIAL BLOOD PH 7.45 (7.35-7.45); ARTERIAL BLOOD PO2 73.9 mmHg (80-100); ARTERIAL BLOOD TOTAL CO2 30.3 mmol/L (23-27)
[2019-10-29 06:21] LABS: ARTERIAL BLOOD FIO2 ROOM AIR
--- NOTE | 2019-10-29 08:05 | RADIOLOGY REPORT (SQ) ---
CT angiogram chest with contrast on 10/29/2019 at 7:21 AM CLINICAL INDICATION: Shortness of breath TECHNIQUE: Multiple axial images are obtained throughout the chest following the administration of IV contrast. Computer generated 3D reconstructions/MIPS were performed. 75 mL of Omnipaque 350 contrast was administered intravenously. This exam was performed according to our departmental dose-optimization program, which includes automated exposure control, adjustment of the mA and/or kV according to patient size and/or use of iterative reconstruction technique. Total DLP is 1224.86 mGy*cm. COMPARISON: 07/28/2015 FINDINGS: The patient is status post median sternotomy and CABG. There is no thoracic aortic aneurysm or dissection. Limited visualized upper abdomen is unremarkable. There is no pleural or pericardial effusion. There are no filling defects within the pulmonary arteries to suggest pulmonary embolus. There is no thoracic adenopathy. There is a 9 mm nodular opacity in the left lung base adjacent to left hemidiaphragm favored to the nodular area of atelectasis or postinfectious in nature. This is new when compared with the prior study. Consider CT follow-up at three months, PET/CT or tissue sampling per Fleischner Society recommendations 2017. In this patient at this location would recommend CT follow-up at three months. The lungs are otherwise clear. No acute bony abnormality is noted. There is a small subxiphoid anterior abdominal wall hernia containing only fat. IMPRESSION: 1. No evidence of pulmonary embolus. 2. 9 mm nodular opacity in the left lung base favored to be nodular area of atelectasis or an infectious or inflammatory in nature. As above would recommend CT follow-up at three months in this patient.
[2019-10-29] MEDS ORDERED: DOXYCYCLINE HYCLATE 100 MG TABLET PO ONE (08:21)
[2019-10-29] MEDS ORDERED: LISINOPRIL 10 MG TABLET PO ONE (08:29)
[2019-10-29 09:23] VITALS: BP 173/105
--- NOTE | 2019-10-29 13:52 | EKG REPORT ---
SEVERITY:- ABNORMAL ECG - SINUS RHYTHM MULTIPLE VENTRICULAR PREMATURE COMPLEXES LVH WITH SECONDARY REPOLARIZATION ABNORMALITY PROLONGED QT INTERVAL : Confirmed by: Carol Hahn MD 29-Oct-2019 13:52:15
== END 2019-10-29 09:07 | disposition home or self-care (01) ==
LOC: ER 00:21
DX: J40 Bronchitis, not specified as acute or chronic (principal); R91.1 Solitary pulmonary nodule; R07.89 Other chest pain; E87.6 Hypokalemia; R06.02 Shortness of breath; I25.10 Atherosclerotic heart disease of native coronary artery without angina pectoris; I10 Essential (primary) hypertension; E78.00 Pure hypercholesterolemia, unspecified; I25.2 Old myocardial infarction; Z95.1 Presence of aortocoronary bypass graft
CPT/HCPCS: 93005; 94640 ×2; 99284; 96374; 36415; 82553; 82803; 82550; 85025; 80053; 84484; 85379; 83880; 71046; 71275; 93010; J2930; J7620